=== PATIENT | male | born 1960 | race Caucasian/White ===

== ENCOUNTER 2024-07-23 11:48 | Outpatient (CLI) | payer MEDICARE, SELFPAY | END 2024-07-23 11:49 | disposition home or self-care (01) | PROVIDERS: PCP Family Medicine; Visit Provider Family Medicine | DX: D50.0 Iron deficiency anemia secondary to blood loss (chronic) (principal); R31.0 Gross hematuria; E78.5 Hyperlipidemia, unspecified; N40.1 Benign prostatic hyperplasia with lower urinary tract symptoms; R35.1 Nocturia; Z12.5 Encounter for screening for malignant neoplasm of prostate; Z13.21 Encounter for screening for nutritional disorder | CPT/HCPCS: 80053; 80061; 82607; 82728; 82746; 87086; G0103 ==

== ENCOUNTER 2024-07-24 12:11 | Outpatient (CLI) | payer MEDICARE, SELFPAY ==
[2024-07-24 13:20] VITALS: BP 164/63; PULSE 103
--- NOTE | 2024-07-24 13:45 | P.STN_ITS ---
Stress Test Note Date Date Seen: 07/24/24 Date of test: 07/24/24 Providers Primary care provider: Shorty Toledo Stress test physician: Marta Lara Stress Test Note Stress test ordered: Stress Echo Indication for test: Dyspnea Stress test medicine: None Results discussion: Resting EKG: Sinus rhythm, 79 beats per minute. No ischemic change. Resting blood pressure: 118/58 Stress test: Patient has a stress echo ordered, he is consented on this test. Standard Sascha protocol is followed. He does become significantly dyspneic but no chest pain. No arrhythmia noted. He did get to a maximal heart rate of 135 beats per minute which was 103% of a calculated target heart rate of 131. He had a maximal blood pressure at the end of his recovery of 180/53 but otherwise did during his stress test there was no hypotension, no significant blood pressure changes. He had a rate pressure product of 19,035. Patient did have some mild flattened ST segment changes in the inferolateral leads. He did not have any chest pain. His shortness of breath did resolve after stress testing. He was 100% right at the termination of his exercise, was able to get a pulse oximeter on at that point. During exercise he was not exhibiting a good waveform that we could capture on the pulse oximeter. Awaiting echo images to couple this for a full formal diagnostic. Patient's history was subsequently found B complex. His hemoglobin is known to be 7. He has noted some pale color changes as well as some shortness of breath may be stemming back to March. There has been some noted hematuria, he states he has a CT after this. His hemoglobin was 7 yesterday. I did review his labs after the stress test, has a microcytic anemia with an MCV of 61, platelets and white blood count were normal. His ferritin was low at 3.7, B12 was normal. EKG from yesterday was sinus bradycardia at 55 beats per minute without any ischemic change. Impression: Subjectively symptomatic with significant dyspnea, inferolateral EKG changes suggestive of ischemia but patient has significant anemia: Did contact [facility] and spoke with Dr. Wilkinson. He would not do any intervention based on this study due to the profound anemia. Patient did not have any chest pain which is reassuring. A resting echo may be beneficial and looking for cardiomyopathy with his dyspnea. He states the anemia needs to be corrected, you cannot correlate stress testing with marked anemia as it is unclear. You can have nonobstructive lesions that may be symptomatic and profound anemia. He understands that this patient will be getting a CT. If in the future the patient is found need something like a nephrectomy or further surgery, he would recommend doing CT coronary angiogram to look at the anatomy. He would not recommend angiogram. If there is further concern, patient can have repeat stress test after the anemia is corrected. Follow up suggested: Patient should get his CT of his abdomen done. They may need to consider treating his anemia with transfusion or IV iron. Continue to look for source blood loss. If patient needs subsequent surgical or interventional treatments for other reasons, a CT coronary angiogram can be ordered to look at his coronary anatomy.
== END 2024-07-24 12:12 | disposition home or self-care (01) ==
LOC: STRESS 12:14
PROVIDERS: PCP Family Medicine; Visit Provider Family Medicine
DX: R06.09 Other forms of dyspnea (principal); D64.9 Anemia, unspecified; R31.0 Gross hematuria; R19.00 Intra-abdominal and pelvic swelling, mass and lump, unspecified site; D50.0 Iron deficiency anemia secondary to blood loss (chronic)
CPT/HCPCS: 74178; 93016; 93325; 93351; Q9967

== ENCOUNTER 2024-07-24 12:16 | Outpatient (CLI) | payer MEDICARE, SELFPAY ==
--- NOTE | 2024-07-24 15:00 | CRLHL7_ITS ---
For Patients: As a result of the 21st Century Cures Act, medical imaging exams and procedure reports are released immediately into your electronic medical record. You may view this report before your referring provider. If you have questions, please contact your health care provider. INDICATION: Gross hematuria. COMPARISON: Chest radiograph 07/23/2024 TECHNIQUE: CT of the abdomen and pelvis without and with intravenous contrast. Precontrast and split bolus urographic phase CT obtained per the urogram protocol. Multiplanar axial, coronal, and sagittal reformats were reconstructed. Contrast: 100 mL Isovue 370. FINDINGS: Lung bases: Normal. Liver: Normal. No mass. Gallbladder and bile ducts: Cholecystectomy. No bile duct dilation. Pancreas: Normal. Spleen: Normal spleen size. Small splenule. Adrenal glands: Normal. Kidneys: Normal renal size and position. There is a 3.8 x 2.6 centimeter cyst in the left posterior mid kidney. No solid renal mass. No urinary tract calculi. No urinary tract dilatation. On the urographic phase acquisition, there is good opacification of the upper collecting systems. No upper tract urothelial lesion identified. The mid to distal right ureter is not well evaluated due to non opacification. The left ureter is also only intermittently opacified with contrast. Urinary bladder: There is a very large irregular intraluminal mass in the bladder that measures 7.5 x 7.3 x 6.2 centimeters. The edges are papillary and there is some contrast around the mass. There is focal contraction of the bladder. The base of the tumor appears to be at the right posterior inferior bladder. Bladder wall contact is significant and measures at least 4-5 centimeters. Although the tumor is at the right ureterovesicular junction there does not appear to be any obstruction without dilatation of the right ureter. There are some associated calcifications/bladder stones along the periphery of the mass. There is some soft tissue irregularity and infiltration in the perivesicular tissues at the right posterolateral bladder suspicious for full-thickness extension. Pelvis: As above. Normal appearance of the seminal vesicles and prostate for age. Vessels: Atherosclerosis. No aortic aneurysm. No pelvic DVT. Bowel: No dilated or inflamed bowel. Normal appendix. Diverticulosis without diverticulitis. Mild stool burden. Lymph nodes: No adenopathy. Peritoneum: No ascites. Abdominal wall: No hernia. Bones: No fractures. No focal worrisome bone lesions. IMPRESSION: 1. There is a very large bladder mass that measures up to 7.5 centimeters. There are findings suspicious for full-thickness involvement of the bladder wall and extension into the adjacent soft tissues. 2. No adenopathy. 3. No urinary tract obstruction. Please note that all CT scans at this facility use dose modulation, iterative reconstruction, and/or weight-based dosing when appropriate to reduce radiation dose to as low as reasonably achievable. Dictated by Carmen Soto MD @ 07/28/2024 8:15:09 AM (Electronically Signed)
== END 2024-07-24 12:17 | disposition home or self-care (01) ==
LOC: CT 12:16
PROVIDERS: PCP Family Medicine; Visit Provider Family Medicine
DX: R31.0 Gross hematuria (principal); R19.00 Intra-abdominal and pelvic swelling, mass and lump, unspecified site; D50.0 Iron deficiency anemia secondary to blood loss (chronic); R06.09 Other forms of dyspnea
CPT/HCPCS: 74178; Q9967

== ENCOUNTER 2024-08-13 08:30 | Outpatient (RCR) | payer MEDICARE, SELFPAY ==
[2024-07-29] VITALS (7 sets, daily range): BP systolic 121–165; BP diastolic 51–75; PULSE 58–102; RESP 16–20; TEMP 36–36.6; O2SAT 96–99
--- NOTE | 2024-07-29 09:05 | URNOTE ---
Request received for authorization for Iron Sucrose (Venofer) ([id number]). Prior authorization is not required as services are based on medical necessity and follow Medicare guidelines.
[2024-07-29] MEDS: 0.9 % SODIUM CHLORIDE 500 ML 250 ML IV (12:50)
[2024-07-29] MEDS: SODIUM CHLORIDE 0.9 % (FLUSH) 10 ML SYRINGE IVF (12:51)
[2024-07-31 08:42] VITALS: BP 176/69; PULSE 83; RESP 22; TEMP 36.1; O2SAT 99
[2024-07-31] MEDS: 0.9 % SODIUM CHLORIDE 500 ML 250 ML IV (08:55)
[2024-07-31] MEDS: SODIUM CHLORIDE 0.9 % (FLUSH) 10 ML SYRINGE IVF (08:55)
[2024-07-31 08:58] VITALS: BP 138/62
[2024-07-31 09:15] VITALS: BP 155/72; PULSE 72; RESP 16; O2SAT 97
[2024-07-31 09:47] VITALS: BP 151/70; PULSE 62
[2024-08-04 13:15] VITALS: BP 131/60; PULSE 70; RESP 18; TEMP 35.8; O2SAT 98
[2024-08-04] MEDS: SODIUM CHLORIDE 0.9 % (FLUSH) 10 ML SYRINGE IVF (13:30)
[2024-08-04 13:54] VITALS: BP 106/64; PULSE 61; RESP 17; TEMP 36.6; O2SAT 97
[2024-08-04 14:23] VITALS: BP 128/69; PULSE 62; O2SAT 98
[2024-08-06 07:59] VITALS: BP 138/69; PULSE 69; RESP 18; TEMP 36.1; O2SAT 98
[2024-08-06] MEDS: SODIUM CHLORIDE 0.9 % (FLUSH) 10 ML SYRINGE IVF (08:23)
[2024-08-06 08:45] VITALS: BP 136/74; PULSE 61; RESP 16; TEMP 36.2; O2SAT 96
[2024-08-06 09:25] VITALS: BP 127/70; PULSE 54; RESP 16; TEMP 36.2; O2SAT 96
[2024-08-08 08:37] VITALS: BP 144/65; PULSE 64; RESP 14; TEMP 36.3; O2SAT 63
[2024-08-08] MEDS: SODIUM CHLORIDE 0.9 % (FLUSH) 10 ML SYRINGE IVF (09:05)
[2024-08-08 09:28] VITALS: BP 146/71; PULSE 54; RESP 16; TEMP 36.4
[2024-08-08 10:00] VITALS: BP 144/74; PULSE 56; RESP 16; TEMP 36.4; O2SAT 99
[2024-08-13] MEDS: SODIUM CHLORIDE 0.9 % (FLUSH) 10 ML SYRINGE IVF (09:06)
[2024-08-13 09:20] VITALS: BP 125/68; PULSE 51; RESP 16; TEMP 36.2; O2SAT 97
[2024-08-13 09:55] VITALS: BP 126/56; PULSE 56; RESP 16; TEMP 36.2; O2SAT 96
== END 2025-01-25 23:59 | disposition home or self-care (01) ==
LOC: CCIC 08:30
PROVIDERS: PCP Family Medicine; Referring Provider Family Medicine; Visit Provider Clinical Nurse Specialist
DX: D50.9 Iron deficiency anemia, unspecified (principal)
CPT/HCPCS: 36415; 36430; 86850; 86900; 86901; 86922; 96365; J1756; J7030; J7050; P9016

== ENCOUNTER 2024-08-20 07:54 | Outpatient (CLI) | payer MEDICARE, SELFPAY ==
--- NOTE | 2024-08-20 08:00 | CRLHL7_ITS ---
For Patients: As a result of the Century Cures Act, medical imaging exams and procedure reports are released immediately into your electronic medical record. You may view this report before your referring provider. If you have questions, please contact your health care provider. INDICATION: Anemia with dyspnea on exertion COMPARISON: none TECHNIQUE: CT volumetric acquisition was performed of the thorax during intravenous infusion of 95 cc Isovue 370 nonionic intravenous contrast. Please note that all CT scans at this facility use dose modulation, iterative reconstruction, and/or weight-based dosing when appropriate to reduce radiation dose to as low as reasonably achievable. FINDINGS: The CT images are of acceptable quality and demonstrate normal uniform vascular enhancement within the pulmonary arteries. There are no suspicious filling defects which would indicate pulmonary thromboemboli. There is no evidence of pleural or pericardial fluid. The heart and thoracic aorta appear normal. There is no evidence of lymphadenopathy within the central mediastinum or within either axilla. Atherosclerotic changes are present including coronary artery calcifications. Opacification of the proximal right coronary artery noted. On lung window settings, there is no evidence of pneumothorax. The pulmonary parenchyma has uniform density and there is no evidence of hemorrhage or pneumonia. Incidental subpleural nodular density located within right lower lobe posteriorly. Incidental splenule is present. No adrenal nodule. A small hiatal hernia is incidentally noted. Gallbladder is absent. No fracture. IMPRESSION: No evidence of pulmonary thromboembolism. No arterial occlusion. Please note that all CT scans at this facility use dose modulation, iterative reconstruction, and/or weight-based dosing when appropriate to reduce radiation dose to as low as reasonably achievable. Dictated by Lisandro Whelan MD @ 08/20/2024 9:47:39 AM (Electronically Signed)
== END 2024-08-20 07:55 | disposition home or self-care (01) ==
LOC: CT 07:56
PROVIDERS: PCP Family Medicine; Visit Provider Family Medicine
DX: R06.09 Other forms of dyspnea (principal); D64.9 Anemia, unspecified
CPT/HCPCS: 71275; Q9967

== ENCOUNTER 2024-08-25 10:24 | Outpatient (CLI) | payer MEDICARE, SELFPAY | END 2024-08-25 10:25 | disposition home or self-care (01) | PROVIDERS: PCP Family Medicine; Visit Provider Family Medicine | DX: I25.10 Atherosclerotic heart disease of native coronary artery without angina pectoris (principal); N30.01 Acute cystitis with hematuria | CPT/HCPCS: 80048; 87086 ==

== ENCOUNTER 2024-09-18 13:29 | Outpatient (CLI) | payer MEDICARE, SELFPAY ==
--- NOTE | 2024-09-18 14:00 | CRLHL7_ITS ---
For Patients: As a result of the 21st Century Cures Act, medical imaging exams and procedure reports are released immediately into your electronic medical record. You may view this report before your referring provider. If you have questions, please contact your health care provider. 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 PET CT ordered for additional characterization. TECHNIQUE: Radiopharmaceutical: 18F-fluorodeoxyglucose (18F-FDG) Dose: 11.53 milliCurie. Blood glucose: 89 mg/dL. Image acquisition: At approximately 60 minutes following IV tracer administration via a right antecubital vein, positron emission tomography was performed from the skull base through the mid thigh. Non-contrast low-dose helical CT imaging was performed over the same range without breath-hold for attenuation correction of PET images and anatomic correlation; it is neither sufficient, nor should it be substituted for diagnostic purposes. COMPARISON: CT urogram 07/24/2024. CT angio chest PE 08/20/2024. FINDINGS: Mediastinal blood pool FDG uptake: SUVMax 2.5 (Image 101) Liver background parenchymal FDG uptake: SUVMax 3.8 (image 146) PET Findings: Multilobulated 5.5 x 4.0 cm mural mass arising from the right posterolateral bladder wall demonstrates intense FDG uptake greater than excreted radiotracer in the bladder lumen SUVMax 27.0 (image 260), and most likely corresponds to the known bladder urothelial carcinoma. New 1.1 x 0.9 cm mural nodule in the left posterolateral bladder wall, new since 07/24/2024, without definite focal FDG uptake greater than excreted radiotracer in the bladder lumen (image 258). No abnormal FDG avid lymphadenopathy. Diffuse mild FDG uptake in the axial and proximal appendicular skeleton. No abnormal focal increased FDG uptake in the visualized skeleton. Diffuse colonic bowel loop uptake, most prominently along the decompressed descending and sigmoid colon, without inflammatory changes on CT. Tracer uptake elsewhere is physiologic. Non-PET findings: Coronary artery calcifications. Atherosclerotic calcifications of the thoracic and abdominal aorta. Cholecystectomy clips. Left renal cyst. Colonic diverticulosis. Prostatomegaly. Multilevel degenerative changes in the spine. IMPRESSION: 1. Intensely FDG avid multilobulated 5.5 x 4.0 cm mural mass arising from the right posterolateral bladder wall, with intense FDG uptake greater than excreted radiotracer in the bladder lumen, represents the known bladder urothelial carcinoma. 2. New 1.1 x 0.9 cm mural nodule in the left posterolateral bladder wall, without definite focal FDG uptake greater than excreted radiotracer in the bladder lumen, raises concern for a new neoplastic nodule with FDG uptake obscured by excreted radiotracer in the bladder. 3. Diffuse mild FDG uptake in the axial and proximal appendicular skeleton, representing activation of the reticuloendothelial system, is nonspecific but may be related to anemia versus a systemic inflammatory response. 4. No definite evidence of FDG avid darline or distant metastatic disease. 5. Diffuse colonic bowel loop uptake without inflammatory changes on CT is nonspecific and may be physiologic or may be medication related such as from metformin. Correlate with clinical history of metformin use. Differential also includes inflammatory uptake from early colitis. Correlate with patient`s symptoms Dictated by Walter Cheek MD @ 09/19/2024 3:49:00 PM (Electronically Signed)
== END 2024-09-18 13:30 | disposition home or self-care (01) ==
LOC: RAD 13:30
PROVIDERS: PCP Family Medicine; Visit Provider Urology
DX: C67.2 Malignant neoplasm of lateral wall of bladder (principal); M89.9 Disorder of bone, unspecified
CPT/HCPCS: 78815; A9552